=== PATIENT | female | born 1950 | race Caucasian/White ===

== ENCOUNTER 2018-08-23 21:05 | Emergency (ER) | payer OTHER ==
--- NOTE | 2018-08-23 22:23 | EDPHYS ---
Physician Documentation [facility] Name: Mayur Lee Age: 68 yrs Sex: Female : 1950 Arrival Date: 08/23/2018 Time: 21:19 Bed 13 Private MD: ED Physician Paul Morales HPI: 08/23 22:20 This 68 yrs old Female presents to ER via Ambulatory with complaints of Blood gs Pressure Problem. 22:20 Onset: The symptoms/episode began/occurred 1 week(s) ago. Modifying factors: The gs symptoms are aggravated by discontinuation of meds, out of [place]. Associated signs and symptoms: Pertinent negatives: chest pain, dizziness, dyspnea, lightheadedness, nausea, vomiting. Severity of symptoms: At its worst the blood pressure was severe, in the emergency department the blood pressure is improved, mildly. The patient has experienced similar episodes in the past, a few times. Historical: - Allergies: 21:33 Morphine; ak1 21:33 Codeine; ak1 21:33 Vicodin; ak1 - Home Meds: 21:33 levamir 80units in the morning/80 units at night (Last Dose: Unknown) [Active]; ak1 metformin 1,000 mg Oral tab 1 tab 2 times per day [Active]; losartan oral oral [Active]; gabapentin 300 mg oral cap 1 cap 3 times per day [Active]; atorvastatin 40 mg oral tab 1 tab once daily [Active]; Celexa 40 mg Oral tab 1 tab once daily [Active]; - PMHx: 21:33 Depression; Hyperlipidemia; Hypertension; Diabetes - NIDDM; neuropathy; Arthritis; ak1 Asthma; - PSHx: 21:33 Hysterectomy; Hernia repair; Appendectomy; Cholecystectomy; Tonsillectomy; Carpal ak1 Tunnel Repair; cyst to left wrist; cyst to left chest wall; - Immunization history:: Adult Immunizations unknown. - Social history:: Smoking status: Patient/guardian denies using tobacco. - Ebola Screening: : No symptoms or risks identified at this time. ROS: 22:20 All other systems are negative. gs Exam: 22:20 Eyes: Pupils equal round and reactive to light, extra-ocular motions intact. Lids and gs lashes normal. Conjunctiva and sclera are non-icteric and not injected. Cornea within normal limits. Periorbital areas with no swelling, redness, or edema. ENT: Nares patent. No nasal discharge, no septal abnormalities noted. Tympanic membranes are normal and external auditory canals are clear. Oropharynx with no redness, swelling, or masses, exudates, or evidence of obstruction, uvula midline. Mucous membranes moist. Cardiovascular: Regular rate and rhythm with a normal S1 and S2. No gallops, murmurs, or rubs. Normal PMI, no JVD. No pulse deficits. Respiratory: Lungs have equal breath sounds bilaterally, clear to auscultation and percussion. No rales, rhonchi or wheezes noted. No increased work of breathing, no retractions or nasal flaring. Abdomen/GI: Soft, non-tender, with normal bowel sounds. No distension or tympany. No guarding or rebound. No evidence of tenderness throughout. MS/ Extremity: Pulses equal, no cyanosis. Neurovascular intact. Full, normal range of motion. Neuro: Awake and alert, GCS 15, oriented to person, place, time, and situation. Cranial nerves II-XII grossly intact. Motor strength 5/5 in all extremities. Sensory grossly intact. Cerebellar exam normal. Normal gait. 22:20 Constitutional: The patient appears alert, awake. Vital Signs: 21:33 BP 142 / 74; Pulse 78; Resp 16; Temp 98.0; Pulse Ox 95% on R/A; Weight 117.93 kg (R); ak1 Height 5 ft. 5 in. (165.10 cm) (R); Pain 8/10; 21:59 BP 164 / 79; Pulse 74; Resp 16; Pulse Ox 97% on R/A; jb4 21:33 Body Mass Index 43.27 (117.93 kg, 165.10 cm) ak1 MDM: 22:20 Patient medically screened. gs 22:20 Data reviewed: vital signs, nurses notes. Counseling: I had a detailed discussion with gs the patient and/or guardian regarding: the historical points, exam findings, and any diagnostic results supporting the discharge/admit diagnosis, the need for outpatient follow up, would like rx tom pretty will followup tomorrow at [facility] for rest of meds. 22:25 ED course: says on losartan and hctz 100/25. gs Administered Medications: No medications were administered Point of Care Testing: Blood Glucose: 22:11 Blood Glucose: 313 mg/dL; jb4 Ranges: Critical Glucose Levels:Adult <50 mg/dl or >400 mg/dl <40 mg/dl or >180 mg/dl Disposition: 08/23/18 22:23 Discharged to Home. Impression: Essential (primary) hypertension, Encounter for issue of repeat prescription. - Condition is Stable. - Discharge Instructions: Type 2 Diabetes Mellitus, Diagnosis, Adult, Hypertension. - Prescriptions for losartan- hydrochlorothiazide 100-25 mg Oral tablet - take 1 tablet by ORAL route once daily; 10 tablet. - Medication Reconciliation Form, Thank You Letter, Antibiotic Education, Prescription Opioid Use form. - Follow up: Private Physician; When: 1 - 2 days; Reason: Re-evaluation by your physician. Signatures: Yoon Ledbetter RN RN ak1 Jude Fay RN RN jb4 Paul Morales MD MD gs Corrections: (The following items were deleted from the chart) 22:35 22:23 08/23/2018 22:23 Discharged to Home. Impression: Essential (primary) jb4 hypertension; Encounter for issue of repeat prescription. Condition is Stable. Forms are Medication Reconciliation Form, Thank You Letter, Antibiotic Education, Prescription Opioid Use. Follow up: Private Physician; When: 1 - 2 days; Reason: Re-evaluation by your physician. gs
--- NOTE | 2018-08-23 22:23 | ER ---
Nurse's Notes [facility] Name: Mayur Lee Age: 68 yrs Sex: Female : 1950 Arrival Date: 08/23/2018 Time: 21:19 Bed 13 Private MD: Diagnosis: Essential (primary) hypertension;Encounter for issue of repeat prescription Presentation: 08/23 21:34 Presenting complaint: Patient states: she has been out of all medications listed since ak11 May 2018. pt called medicaid number looking for new PCP and was told to come to ER to re-establish medications. Transition of care: patient was not received from another setting of care. Onset of symptoms is unknown. Risk Assessment: Do you want to hurt yourself or someone else? Patient reports no desire to harm self or others. Initial Sepsis Screen: Does the patient meet any 2 criteria? No. Patient's initial sepsis screen is negative. Does the patient have a suspected source of infection? No. Patient's initial sepsis screen is negative. Care prior to arrival: None. 21:34 Method Of Arrival: Ambulatory ak1 21:34 Acuity: BRYCE 3 ak1 Triage Assessment: 21:35 General: Appears in no apparent distress. comfortable, Behavior is calm, cooperative. ak1 Pain: Complains of pain in bilateral feet/legs from neuropathy. Historical: - Allergies: 21:33 Morphine; ak1 21:33 Codeine; ak1 21:33 Vicodin; ak1 - Home Meds: 21:33 levamir 80units in the morning/80 units at night (Last Dose: Unknown) [Active]; ak1 metformin 1,000 mg Oral tab 1 tab 2 times per day [Active]; losartan oral oral [Active]; gabapentin 300 mg oral cap 1 cap 3 times per day [Active]; atorvastatin 40 mg oral tab 1 tab once daily [Active]; Celexa 40 mg Oral tab 1 tab once daily [Active]; - PMHx: 21:33 Depression; Hyperlipidemia; Hypertension; Diabetes - NIDDM; neuropathy; Arthritis; ak1 Asthma; - PSHx: 21:33 Hysterectomy; Hernia repair; Appendectomy; Cholecystectomy; Tonsillectomy; Carpal ak1 Tunnel Repair; cyst to left wrist; cyst to left chest wall; - Immunization history:: Adult Immunizations unknown. - Social history:: Smoking status: Patient/guardian denies using tobacco. - Ebola Screening: : No symptoms or risks identified at this time. Screenin:35 Abuse screen: Denies threats or abuse. Denies injuries from another. Nutritional ak1 screening: No deficits noted. Tuberculosis screening: No symptoms or risk factors identified. Fall Risk Gait- Impaired (20 pts.). Assessment: 21:55 General: Appears in no apparent distress. comfortable, Behavior is calm, cooperative, jb4 appropriate for age, PT reports being out of her medications for the past 3 months and unable to get them refilled since loosing her job. Came in today to get blood pressure and blood sugar checked, and to have her medications refilled until she can get a new doctor next month.. Pain: Denies pain. Neuro: Level of Consciousness is awake, alert, obeys commands, Oriented to person, place, time, situation. Cardiovascular: Patient's skin is warm and dry. Respiratory: Airway is patent Respiratory effort is even, unlabored, Respiratory pattern is regular, symmetrical. GI: No signs and/or symptoms were reported involving the gastrointestinal system. : No signs and/or symptoms were reported regarding the genitourinary system. EENT: No signs and/or symptoms were reported regarding the EENT system. Derm: Skin is intact, Skin is pink, warm \T\ dry. Musculoskeletal: Circulation, motion, and sensation intact. 22:33 Reassessment: Patient appears in no apparent distress at this time. Patient is alert, jb4 oriented x 3, equal unlabored respirations, skin warm/dry/pink. Pt left ED ambulatory with steady gait, left with family, verbalized understanding of d/c and follow up instructions, denies questions or concerns. Vital Signs: 21:33 BP 142 / 74; Pulse 78; Resp 16; Temp 98.0; Pulse Ox 95% on R/A; Weight 117.93 kg (R); ak1 Height 5 ft. 5 in. (165.10 cm) (R); Pain 8/10; 21:59 BP 164 / 79; Pulse 74; Resp 16; Pulse Ox 97% on R/A; jb4 21:33 Body Mass Index 43.27 (117.93 kg, 165.10 cm) ak1 ED Course: 21:19 Patient arrived in ED. am2 21:33 Arm band placed on Patient placed in waiting room, Patient notified of wait time. ak1 21:35 Triage completed. ak1 21:35 Patient has correct armband on for positive identification. ak1 21:40 Paul Morales MD is Attending Physician. gs 21:42 Jude Fay, RN is Primary Nurse. jb4 22:34 No provider procedures requiring assistance completed. Patient did not have IV access jb4 during this emergency room visit. Administered Medications: No medications were administered Point of Care Testing: Blood Glucose: 22:11 Blood Glucose: 313 mg/dL; jb4 Ranges: Outcome: 22:23 Discharge ordered by . gs 22:34 Discharged to home ambulatory, with family. jb4 22:34 Condition: stable 22:34 Discharge instructions given to patient, family, Instructed on discharge instructions, follow up and referral plans. medication usage, Demonstrated understanding of instructions, follow-up care, medications, Prescriptions given X 1. 22:35 Patient left the ED. jb4 Signatures: Yoon Ledbetter RN RN ak1 Jude Fay, RAMIREZ RN jb4 Liz Logan 2 Paul Morales MD MD
== END 2018-08-23 22:35 | disposition home or self-care (01) ==
LOC: ER 21:05
DX: I10 Essential (primary) hypertension (principal); Z76.0 Encounter for issue of repeat prescription; F32.9 Major depressive disorder, single episode, unspecified; E78.5 Hyperlipidemia, unspecified; E11.9 Type 2 diabetes mellitus without complications; J45.909 Unspecified asthma, uncomplicated; Z88.5 Allergy status to narcotic agent; Z79.84 Long term (current) use of oral hypoglycemic drugs
CPT/HCPCS: 82962; 99282